=== PATIENT | female | born 1990 | race American Indian/Alaskan Native ===

== ENCOUNTER 2016-08-24 02:48 | Emergency (ER) | payer SELFPAY ==
[2016-08-24 04:32] LABS: Hematocrit 39.5 % (30.3-42.9); Hemoglobin 12.6 gm/dl (10.1-14.3); Mean Corpuscular HGB Conc 32 % (30-34); Mean Corpuscular Volume 75 fl (79-97); Platelet Count 314 K/mm3 (140-440); White Blood Count 6.4 K/mm3 (4.5-11.0)
[2016-08-24 04:37] LABS: Mean Corpuscular Hemoglobin 24 pg (28-32); Red Cell Distribution Width 25.1 % (13.2-15.2)
[2016-08-24 04:47] LABS: Alanine Aminotransferase 12 units/L (7-56); Albumin 4.5 g/dL (3.9-5); Albumin/Globulin Ratio 1.2 %; Alkaline Phosphatase 66 units/L (35-129); Anion Gap 21 mmol/L; Blood Urea Nitrogen 10 mg/dL (7-17); Calcium 9.2 mg/dL (8.4-10.2); Carbon Dioxide 23 mmol/L (22-30); Chloride 98.3 mmol/L (98-107); Glucose 114 mg/dL (65-100); Lipase 20 units/L (13-60); Potassium 3.4 mmol/L (3.6-5.0); Sodium 139 mmol/L (137-145); Total Protein 8.2 g/dL (6.3-8.2)
[2016-08-24 05:38] LABS: Bilirubin,Urine NEG (Negative); Blood,Urine LG (Negative); Ketones,Urine TR mg/dL (Negative); Leukocyte Esterase,Urine MOD (Negative); Mucus,Urine 2+ /HPF; Nitrite,Urine NEG (Negative)
[2016-08-24 08:56] LABS: Basophils % (Manual) 0 % (0.0-1.8); Blastocytes % (Manual) 0 %
[2016-08-24 08:57] LABS: Anisocytosis 2+; Diff Status Complete; Hypochromasia 1+
--- NOTE | 2016-08-24 10:44 | Emergency Department Report ---
HPI - General Chief Complaint: Medical Clearance Time Seen by Provider: 08/24/16 08:29 - HPI HPI: The patient is a 26-year-old female who presents for evaluation of sadness and drug use. The patient states that for the past one week she has been constant and severe sadness exacerbated with drug use. She states that she would like to enter into a [facility] rehabilitation facility. The patient denies fever, headache, unexplained weight loss or weight gain, heat or cold intolerance, skin , hair, or nail changes, neuro deficits, suicidal ideations, homicidal ideations , or auditory or visual hallucinations. ED Past Medical Hx - Past Medical History Previous Medical History?: Yes Additional medical history: Transgender - Surgical History Past Surgical History?: No - Social History Smoking Status: Current Every Day Smoker Substance Use Type: Marijuana ED Review of Systems ROS: Stated complaint: BLOOD IN URINE/MED CLEARANCE Other details as noted in HPI Constitutional: denies: fever ENT: denies: throat or neck pain Respiratory: denies: cough, shortness of breath Cardiovascular: denies: chest pain Endocrine: denies unexplained weight loss or gain Gastrointestinal: denies: abdominal pain, nausea Genitourinary: denies: dysuria Musculoskeletal: denies: leg swelling Skin: denies: rash Neurological: denies: headache Hematological/Lymphatic: denies: easy bleeding or easy bruising Psych: reports sadness denies hopelessness or SI Physical Exam - Physical Exam Vital Signs: Vital Signs 08/24/16 08/24/16 03:57 08:09 Temperature 97.6 F Pulse Rate 65 57 L Respiratory 20 18 Rate Blood Pressure 120/78 138/91 [Right] O2 Sat by Pulse 99 100 Oximetry Physical Exam: General: well-nourished, well-developed, no acute distress Head: Normocephalic, atraumatic Eyes: normal sclera ENT: Mucous membranes are pink and moist Neck: trachea midline, neck supple, No neck stiffness, no cervical adenopathy Respiratory: Breath sounds equal bilaterally, no wheezing, rales, or rhonchi Cardio: S1 and S2 present, no murmurs, rubs, gallops, capillary refill is brisk Abdomen: Normoactive bowel sounds, soft abdomen, no rigidity, no guarding or rebound tenderness Musc: No pitting edema Skin: No rash Neuro: no facial drooping, normal speech Psych: Flat affect, depressed mood, good insight, no suicidal or homicidal ideations, no hallucinations ED Course Vital Signs 08/24/16 08/24/16 03:57 08:09 Temperature 97.6 F Pulse Rate 65 57 L Respiratory 20 18 Rate Blood Pressure 120/78 138/91 [Right] O2 Sat by Pulse 99 100 Oximetry ED Medical Decision Making - Lab Data Result diagrams: 08/24/16 04:08 08/24/16 04:08 - Medical Decision Making The patient was seen and examined by myself. The patient is placed on a [employer] general [employer] and continuous pulse ox. On initial evaluation, the patient was found to be in no distress. Labs are obtained. Lab results are grossly unremarkable. The patient is medically clear. Mental health is consulted. Mental health evaluates the patient and agrees that the patient is negative for findings concerning for risk of harm to herself or others, and that the patient is an appropriate candidate for drug rehabilitation facility placement. The patient was transferred to [facility] for drug rehabilitation. Critical care attestation.: If time is entered above; I have spent that time in minutes in the direct care of this critically ill patient, excluding procedure time. ED Disposition Clinical Impression: Medical clearance for psychiatric admission, Dehydration, Polysubstance abuse Depressed Qualifiers: Depression Type: unspecified Qualified Code(s): F32.9 - Major depressive disorder, single episode, unspecified Disposition: DC/TX PSY HOSP/PSY UNIT Is pt being admited?: No Does the pt Need Aspirin: No Condition: Stable Instructions: Medical Clearance for Substance Abuse Treatment (ED) Referrals: PRIMARY CARE [Primary Care Provider] - 3-5 Days Time of Disposition: 09:43
[2016-08-24 13:35] VITALS: BP 122/65
[2016-08-24 23:39] LABS: Urine Drugs of Abuse Note Disclamer
== END 2016-08-24 13:36 ==
LOC: ED 02:48
DX: F32.9 Major depressive disorder, single episode, unspecified (principal); E86.0 Dehydration; F17.200 Nicotine dependence, unspecified, uncomplicated; F12.10 Cannabis abuse, uncomplicated
CPT/HCPCS: 36415; 80053; 80307; 81001; 83690; 84703; 85007; 85025; 99285; G0480; 80320